=== PATIENT | female | born 1950 | race Caucasian/White ===

== ENCOUNTER 2021-02-04 14:55 | Emergency (ER) | payer MEDICARE, OTHER ==
[~2021-02-04 14:55] MED LIST: ASPIRIN CHEWABL81 MG PO; CIPRO500 MG PO; CYMBALTA60 MG PO; LEXAPRO20 MG PO; MOBIC15 MG PO; PERCOCET 5-3251 EACH PO; RESTASIS1 EACH OU; VITAMIN D3125 MC2 PO; ZOFRAN8 MG PO
[2021-02-04 16:20] LABS: BASOPHIL 0.6 % (0-2); EOSINOPHIL 1.9 % (0-7); HCT 42.5 % (37.0-47.0); HGB 13.6 g/dl (12.5-16.0); LYMPHOCYTE 17.5 % (15-48); MCH 27.6 pg (25.0-31.0); MCV 86.2 fL (78.0-100.0); MONOCYTE 6.8 % (0-12); MPV 9.9 fL (6.0-9.5); NEUTROPHIL 72.9 % (41-80); NRBC 0; PLT 244 K/uL (150-400); RBC 4.93 M/uL (4.20-5.40); RDW 13.3 % (11.5-14.0)
[2021-02-04 16:35] LABS: INR 1.11 (0.9-1.2); PROTHROMBIN TIME 13.7 SECONDS (11.8-13.4)
[2021-02-04 17:01] LABS: BILIRUBIN NEGATIVE (NEGATIVE); BLOOD 3+ Ery/uL (NEGATIVE); CLARITY CLEAR (CLEAR); COLOR YELLOW (YELLOW); GLUCOSE (U) NORMAL (NORMAL); LEUKOCYTES NEGATIVE Leu/uL (NEGATIVE); NITRITE NEGATIVE (NEGATIVE); PROTEIN NEGATIVE (NEGATIVE); UROBILINOGEN 0.2 mg/dL (0.2-1.0)
[2021-02-04 17:04] LABS: ALBUMIN 3.3 g/dL (3.4-5.0); BILIRUBIN - TOTAL 1.1 mg/dL (0.2-1.0); BUN/CREAT RATIO (CALC) 16.2 RATIO; C-REACTIVE PROTEIN 0.3 mg/dL (<=0.90); CREATININE 0.8 mg/dL (0.51-0.95); GLOBULIN (CALCULATION) 2.6 g/dL; TOTAL PROTEIN 5.9 g/dL (6.4-8.2)
[2021-02-04 17:31] LABS: BACTERIA TRACE
[2021-02-04] MEDS ORDERED: NORCO 5-325 TA1 EACH PO (18:57)
[2021-02-04] MEDS ORDERED: AMOX TR-K CLV1 EAC3 PO (18:57)
[2021-02-04] MEDS ORDERED: ONDANSETRON ODT4 MG PO (18:57)
[2021-02-04] MEDS ORDERED: FLOMAX0.4 MG PO (18:57)
== END 2021-02-04 19:30 | disposition home or self-care (01) ==
LOC: FER 14:55
PROVIDERS: Emergency Medicine
DX: K57.32 Diverticulitis of large intestine without perforation or abscess without bleeding (principal); N13.2 Hydronephrosis with renal and ureteral calculous obstruction
CPT/HCPCS: 36415; 80053; 81001; 83690; 83735; 84145; 85025; 85610; 86140; J2543; J7030; Q9967

== ENCOUNTER 2021-07-26 07:01 | Day surgery (SDC) | payer MEDICARE, OTHER ==
[~2021-07-26] VITALS: Ht 160 cm; Wt 88.0 kg
[~2021-07-26 07:01] MED LIST changes: +ALENDRONATE SOD70 MG PO; +AMOX TR-K CLV1 EAC3 PO; +CYANOCOBAL1000 MCG/1 IM; +FLOMAX0.4 MG PO; +NORCO 5-325 TA1 EACH PO; +ONDANSETRON ODT4 MG PO; +TYLENOL PM EX-1 EACH PO; +VITAMIN B122500 MC1 PO; +VITAMIN D310 MC3 PO
--- NOTE | 2021-07-26 14:02 | NUR ---
NOTIFIED OF 1ST APPOINTMENT WITH JACQUELYN 07/28/21 GLORIA AT 1000AM VERBILIZED UNDERSTANDING OF APPOINTMENT
[2021-07-27 07:38] LABS: BASOPHIL 0.4 % (0-2); EOSINOPHIL 1.8 % (0-7); HCT 34.5 % (37.0-47.0); HGB 10.8 g/dl (12.5-16.0); LYMPHOCYTE 11.2 % (15-48); MCH 27.8 pg (25.0-31.0); MCHC 31.3 g/dL (32.0-36.0); MCV 88.7 fL (78.0-100.0); MONOCYTE 6.7 % (0-12); MPV 10.8 fL (6.0-9.5); NEUTROPHIL 79.5 % (41-80); NRBC 0; PLT 190 K/uL (150-400); RBC 3.89 M/uL (4.20-5.40); WBC 11.1 K/uL (4.0-10.5)
[2021-07-27 08:14] LABS: BUN/CREAT RATIO (CALC) 17.9 RATIO; CREATININE 0.95 mg/dL (0.51-0.95); POTASSIUM 3.6 mmol/L (3.5-5.1)
[2021-07-27] MEDS ORDERED: ASPIRIN81 MG PO (08:58)
[2021-07-27] MEDS ORDERED: FEOSOL325 MG PO (08:58)
== END 2021-07-27 11:00 | disposition home or self-care (01) ==
LOC: FMS 07:01 → FAS 07:01 → FMS 09:04 → FAS 10:30
PROVIDERS: Orthopaedic Surgery
DX: M17.11 Unilateral primary osteoarthritis, right knee (principal); K21.9 Gastro-esophageal reflux disease without esophagitis; F32.A Depression, unspecified; F41.9 Anxiety disorder, unspecified; Z79.899 Other long term (current) drug therapy
CPT/HCPCS: 36415; 73560; 80048; 85025; 86850; 86900; 86901; 94010; 94760; 94762; 97110; 97162; 97166; 97530-GP; 97535; C1713; C1776; J0171; J0697; J1170; J1885; J2250; J2270; J2405; J2704; J2795; J3010; J7120